=== PATIENT | female | born 1990 | race Caucasian/White ===

== ENCOUNTER 2020-07-26 23:45 | Emergency (ER) | payer OTHER ==
[~2020-07-26] VITALS: Ht 154.9 cm; Wt 63.5 kg
[2020-07-27 01:36] LABS: ABSOLUTE NEUTROPHILS 5.8 thou/uL (1.4-8.2); BASOPHILS 0.8 % (0.0-2.0); EOSINOPHILS 0.7 % (0.0-3.0); HEMATOCRIT 39.8 % (37.0-47.0); HEMOGLOBIN 13.6 gm/dL (12.0-15.0); MCH 28.1 pg (26.0-34.0); MCHC 34.1 g/dL (28.0-37.0); MCV 82.4 fL (80.0-100.0); PLATELET COUNT 346 thou/uL (150-400); POLYS 64.5 % (36.0-66.0); RBC 4.83 mil/uL (4.20-5.00); RDW 13.9 % (10.5-14.5)
[2020-07-27 01:45] LABS: CALCIUM 9.4 mg/dL (8.5-10.1); CREATININE 0.7 mg/dL (0.6-1.0); POTASSIUM 3.8 mmol/L (3.5-5.1)
[2020-07-27 01:51] LABS: TOTAL BILIRUBIN 0.5 mg/dL (0.2-1.0); TOTAL PROTEIN 8.2 g/dL (6.4-8.2)
[2020-07-27] MEDS ORDERED: PROTONIX40 M2 PO (03:45)
[2020-07-27] MEDS ORDERED: LYRICA25 MG PO (03:45)
[2020-07-27] MEDS ORDERED: ZOFRAN ODT4 MG PO (03:49)
[2020-07-27] MEDS ORDERED: FLEXERIL PO (03:49)
[2020-07-27 04:16] VITALS: BP 140/85
== END 2020-07-27 04:16 | disposition home or self-care (01) ==
LOC: ER 23:45
PROVIDERS: Emergency Medicine
DX: M54.2 Cervicalgia (principal); M62.81 Muscle weakness (generalized); Z88.6 Allergy status to analgesic agent